=== PATIENT | male | born 1985 | race Caucasian/White ===

== ENCOUNTER 2020-04-13 16:38 | Outpatient (REF) | payer OTHER, SELFPAY | END 2020-04-13 16:39 | disposition home or self-care (01) | LOC: HO.LAB 16:38 | PROVIDERS: Visit Provider Internal Medicine | DX: Z20.822 Contact with and (suspected) exposure to COVID-19 (principal) | CPT/HCPCS: 36415; C9803; U0003; U0005 ==

== ENCOUNTER 2021-01-03 15:40 | Outpatient (REF) | payer OTHER, SELFPAY | END 2021-01-03 15:41 | disposition home or self-care (01) | LOC: HO.LAB 15:40 | PROVIDERS: Visit Provider Internal Medicine | DX: Z20.822 Contact with and (suspected) exposure to COVID-19 (principal) | CPT/HCPCS: C9803; U0003; U0005 ==